=== PATIENT | female | born 2000 | race Caucasian/White ===

== ENCOUNTER 2021-12-22 10:41 | Emergency (ER) | payer BC, SELFPAY ==
--- NOTE | ~2021-12-22 | XR_ITS ---
EXAMINATION: XR ribs RT 2V w CXR 2V INDICATION: Right-sided chest pain TECHNIQUE: Frontal and lateral views of the chest and 3 views of the right ribs were obtained. COMPARISON: None. FINDINGS: The lungs are free of acute opacities. There is no pleural effusion or pneumothorax. The ca rdiomediastinal silhouette is normal. The visualized bones and soft tissues are unremarkable. No dis placed rib fracture is identified. IMPRESSION: 1. No acute cardiopulmonary abnormality or evidence of displaced rib fracture. Reviewed, dictated and finalized at location B.
[2021-12-22 10:55] VITALS: BP 138/60; PULSE 74; RESP 18; TEMP 36.5; O2SAT 100
--- NOTE | 2021-12-22 11:11 | ED.SOB ---
HPI - SOB/Dyspnea General Chief Complaint: Shortness of Breath/Dyspnea Stated Complaint: dyspnea Time Seen by Provider: 12/22/21 11:02 Source: patient Mode of arrival: ambulatory Limitations: no limitations History of Present Illness HPI Narrative: 21 y/o female presents to the ER today for pain in the right shoulder blade area that radiates into her right chest. She says that she has increased pain with taking a deep breath. She says that the pain started after [employer] practice yesterday evening. She says that she feels like she can't take a full breath because of the pain. She says it hurts with movement as well. She denies any cough. No fever or chills. no n/v/d. She is a smoker but stopped 1 week ago. She is not currently on contraceptives. Related Data Allergies Allergy/AdvReac Type Severity Reaction Status Date / Time No Known Allergies Allergy Unverified 10/13/14 17:32 Review of Systems Constitutional: Constitutional: Denies chills, Denies fever(s) and Denies weakness Eyes: Eyes: Denies change in vision ENT: Denies dizziness, Denies nasal congestion and Denies sore throat Cardiovascular: Cardiovascular: Reports no additional cardiovascular complaints Respiratory: Respiratory: Denies chest congestion, Denies cough, Reports dyspnea and Denies wheezing Gastrointestinal: Gastrointestinal: Denies abdominal pain, Denies constipation, Denies diarrhea, Denies nausea and Denies vomiting Genitourinary: Genitourinary: Reports no additional female genitourinary complaints Musculoskeletal: Musculoskeletal: Reports no additional musculoskeletal complaints Integumentary/Breasts: Skin/Breast: Denies rash Neurologic: Denies vertigo, Denies dizziness and Denies headache(s) Psychiatric: Psychiatric: Denies anxiety and Denies depression Endocrine: Endocrine: Denies fatigue Hematologic/Lymphatic: Hematologic/Lymphatic: Reports no additional hematologic/lymphatic complaints Allergic/Immunologic: Allergic/Immunologic: Reports no additional allergic/immunologic complaints [facility] Past Medical History Medical History Asthma POTS (postural orthostatic tachycardia syndrome) Exam Const: General: no acute distress and alert Orientation/consciousness: patient oriented x3 HENMT: Head: normal to inspection Eyes: Conjunctivae: conjunctivae normal Pupils: Equal, round and reactive pupils present Neck: Neck: normal visual inspection Chest: Chest palpation & inspection: normal inspection of the chest and no tenderness Resp: Effort & Inspection: normal respiratory effort Auscultation: clear to auscultation bilaterally, no rales, no rhonchi and no wheezes Cardio: Rate: regular rate Rhythm: regular rhythm GI: GI Palp: Yes Soft to palpation, No Tenderness to palpation present (GI) and No Guarding due to palpation present (GI) Auscultation: normal bowel sounds : General: Yes no CVA tenderness Skin: General skin exam: normal color Rashes: no rashes Neuro: General: patient oriented x3 and moves all extremities Extrem: General: normal to inspection and no edema Psych: Mental Status: mental status grossly normal Affect: normal affect Attitude: cooperative Course Reevaluation(s) Reevaluation #1: Pt reports improvement in pain after toradol injection. Date: 12/22/21 Time: 12:45 Vital Signs Vital signs: Vital Signs Temperature 36.5 C 12/22/21 10:55 Pulse Rate 74 12/22/21 10:55 Respiratory Rate 18 12/22/21 10:55 Blood Pressure 138/60 12/22/21 10:55 Pulse Oximetry 100 12/22/21 10:55 Temperature 36.5 C 12/22/21 10:55 Pulse Rate 74 12/22/21 10:55 Respiratory Rate 18 12/22/21 10:55 Blood Pressure 138/60 12/22/21 10:55 Pulse Oximetry 100 12/22/21 10:55 MDM - SOB/Dyspnea Differential Diagnosis Differential diagnosis: Likely other (PE, rib fracture, chest wall muscle strain, thoracic back strain) Lab Data Attestation: I
--- NOTE | 2021-12-22 11:12 | ECG_ITS ---
Measurements Intervals [place] Rate: 57 P: 60 RI: 133 QRS: 91 QRSD: 86 T: 36 QT: 409 QTc: 398 Interpretive Statements SINUS BRADYCARDIA RIGHT AXIS DEVIATION [QRS AXIS > 90] ABNORMAL ECG NO PREVIOUS ECG AVAILABLE FOR COMPARISON Electronically Signed On 12-22-2021 16:01:31 CDT by Lobito Schaefer M.D.
[2021-12-22] MEDS: KETOROLAC 30 MG/ML VIAL (*BKC) IV PUSH (11:49)
[2021-12-22 11:50] LABS: Basophils Percent Auto 0.6 % (0.2-1.2); Eosinophils Absolute Auto 0.1 K/mm3 (0-0.3); Eosinophils Percent Auto 2.5 % (0-4.4); Hematocrit 41.8 % (37.0-47.0); Hemoglobin 13.6 g/dL (12.0-15.0); Immature Granulocyte Absolute 0.01 K/mm3 (0.00-0.031); Immature Granulocyte Percent A 0.2 % (0-0.5); Lymphocytes Percent Auto 38.6 % (18.3-44.2); Mean Corpuscular HGB Conc 32.5 g/dl (32-36); Mean Corpuscular Hemoglobin 29.6 pg (26-34); Mean Corpuscular Volume 90.9 fl (80-100); Mean Platelet Volume 8.9 fl (7.4-10.4); Monocytes Absolute Auto 0.4 K/mm3 (0.1-0.6); Monocytes Percent Auto 6.9 % (2.6-8.5); Neutrophils Absolute Auto 2.7 K/mm3 (1.3-6.7); Neutrophils Percent Auto 51.2 % (45.5-73.1); Platelet Count Result 244 k/mm3 (150-375); Red Cell Distribution Width 12.2 % (11.5-14.5); White Blood Count 5.2 K/mm3 (4.5-10.0)
[2021-12-22 12:00] LABS: Alanine Aminotransferase 28 U/L (4-35); Albumin Level 4.2 g/dL (3.5-5.1); Alkaline Phosphatase 62 U/L (38-126); Anion Gap 4 mmol/L (8-16); Aspartate Amino Transferase 45 U/L (14-36); Bilirubin,Total 0.4 mg/dL (0.2-1.3); Blood Urea Nitrogen 13 mg/dL (7-17); Calcium 8.5 mg/dL (8.4-10.2); Carbon Dioxide 29 mmol/L (22-30); Chloride 104 mmol/L (98-107); Estimated CRCL calculation 91 ml/min; Estimated Glomerular Filt Rate > 60; Glucose 80 mg/dL (65-110); Sodium 137 mmol/L (137-145)
[2021-12-22 12:10] LABS: Troponin I < 0.012 ng/mL (0.000-0.034)
[2021-12-22 12:21] LABS: D Dimer 0.27 ug/mL (<0.48)
[2021-12-22 13:14] VITALS: BP 133/67; PULSE 65; RESP 16; O2SAT 100
== END 2021-12-22 13:15 | disposition home or self-care (01) ==
PROVIDERS: Emergency Provider Nurse Practitioner Family; PCP Physician Assistant
DX: S29.012A Strain of muscle and tendon of back wall of thorax, initial encounter (principal); R07.1 Chest pain on breathing; J45.909 Unspecified asthma, uncomplicated; R00.1 Bradycardia, unspecified; X58.XXXA Exposure to other specified factors, initial encounter; Y93.63 Activity, rugby
CPT/HCPCS: 36415; 71046; 71100; 80053; 81025; 84484; 85025; 85380; 93005; 96374; 99284; J1885